=== PATIENT | male | born 1980 | race American Indian/Alaskan Native ===

== ENCOUNTER 2017-07-21 23:57 | Emergency (ER) | payer SELFPAY ==
[2017-07-22 02:25] VITALS: BP 125/79
--- NOTE | 2017-07-22 02:45 | XRay Report ---
FINAL REPORT EXAM: XR HAND 3+V RT HISTORY: right hand swollen after punching refrigerator COMPARISON: None available. FINDINGS: Three views the right hand obtained. Transverse fracture of the 5th metacarpal neck with anterior angulation of the metacarpal head. Joint spaces are preserved. Remaining bony structures are intact. IMPRESSION: Fifth metacarpal neck fracture.
[2017-07-22] MEDS ORDERED: MOTRIN PO ONE (03:03)
--- NOTE | 2017-07-22 03:08 | Emergency Department Report ---
ED Upper Extremity Inj HPI - General Chief Complaint: Extremity Injury, Upper Stated Complaint: R HAND INJURY Time Seen by Provider: 07/22/17 03:00 Source: patient Mode of arrival: Ambulatory Limitations: No Limitations - History of Present Illness Initial Comments: This is a 36-year-old male nontoxic, well nourished in appearance, no acute signs of distress presents to the ED complaining of right hand pain and swelling 4 days. Patient stated on Friday he became aggravated and punched the refrigerator then developed sharp pain in that over time has increased swelling. Patient denies any numbness, tingling, fever, chills, nausea, vomiting, chest pain or shortness of breath. Patient stated has decreased range of motion due to pain but does have a full range of motion. Patient denies any allergies or past medical history. MD Complaint: Injury to:: right, hand -: Gradual, days(s) (4) Other Extremity Injury: Hand: Right Other Injuries: none Place: home Severity scale (0 -10): 6 Improves With: none Worsens With: none Context: direct blow Associated Symptoms: denies other symptoms. denies: weakness, numbness, neck pain, suspects foreign body, nausea/vomiting, heard/felt popping sensat - Related Data Previous Rx's Medication Instructions Recorded Last Taken Type Ibuprofen [Motrin 600 MG tab] 600 mg PO Q8H PRN #30 tablet 07/22/17 Unknown Rx Allergies Allergy/AdvReac Type Severity Reaction Status Date / Time No Known Allergies Allergy Unverified 07/22/17 02:19 ED Review of Systems ROS: Stated complaint: R HAND INJURY Other details as noted in HPI Constitutional: denies: chills, fever Eyes: denies: eye pain, eye discharge, vision change ENT: denies: ear pain, throat pain Respiratory: denies: cough, shortness of breath, wheezing Cardiovascular: denies: chest pain, palpitations Endocrine: no symptoms reported Gastrointestinal: denies: abdominal pain, nausea, diarrhea Genitourinary: denies: urgency, dysuria Musculoskeletal: denies: back pain, joint swelling, arthralgia Skin: denies: rash, lesions Neurological: denies: headache, weakness, paresthesias Psychiatric: denies: anxiety, depression Hematological/Lymphatic: denies: easy bleeding, easy bruising ED Past Medical Hx - Past Medical History Previous Medical History?: No - Social History Smoking Status: Current Every Day Smoker - Medications Home Medications: Home Medications Medication Instructions Recorded Confirmed Last Taken Type Ibuprofen [Motrin 600 MG tab] 600 mg PO Q8H PRN #30 tablet 07/22/17 Unknown Rx ED Physical Exam - General Limitations: No Limitations General appearance: alert, in no apparent distress - Head Head exam: Present: atraumatic, normocephalic, normal inspection - Eye Eye exam: Present: normal appearance, PERRL, EOMI. Absent: scleral icterus, conjunctival injection, nystagmus, periorbital swelling, periorbital tenderness Pupils: Present: normal accommodation - ENT ENT exam: Present: normal exam, normal orophraynx, mucous membranes moist, TM's normal bilaterally, normal external ear exam - Neck Neck exam: Present: normal inspection, full ROM. Absent: tenderness, meningismus, lymphadenopathy, thyromegaly - Respiratory Respiratory exam: Present: normal lung sounds bilaterally. Absent: respiratory distress, wheezes, rales, rhonchi, stridor, chest wall tenderness, accessory muscle use, decreased breath sounds, prolonged expiratory - Cardiovascular Cardiovascular Exam: Present: regular rate, normal rhythm, normal heart sounds. Absent: bradycardia, tachycardia, irregular rhythm, systolic murmur, diastolic murmur, rubs, gallop - GI/Abdominal GI/Abdominal exam: Present: soft, normal bowel sounds. Absent: distended, tenderness, guarding, rebound, rigid, diminished bowel sounds - Rectal Rectal exam: Present: deferred - Extremities Exam Extremities exam: Present: normal inspection, full ROM, tenderness, normal capillary refill. Absent: pedal edema, joint swelling, calf tenderness - Expanded Upper Extremity Exam Right General: Present: normal inspection Shoulder Exam: Present: normal inspection, full ROM Upper Arm exam: Present: normal inspection, full ROM Elbow exam: Present: normal inspection, full ROM Forearm Wrist exam: Present: normal inspection, full ROM Hand Wrist exam: Present: normal inspection, full ROM, tenderness, swelling. Absent: abrasion, laceration, ecchymosis, deformity, crepidus, dislocation, erythema, amputation, nail avulsion, subungual hematoma Neuro motor exam: Present: wrist extension intact, thumb opposition intact, thumb IP flexion intact, thumb adduction intact, fingers 2-5 abduction intact Neurosensory exam: Present: 2-point discrimination, radial nerve intact, ulnar nerve intact, median nerve intact Vascular: Present: vascular compromise, normal capillary refill, radial pulse, brachial pulse, ulnar pulse - Back Exam Back exam: Present: normal inspection, full ROM. Absent: tenderness, CVA tenderness (R), CVA tenderness (L), muscle spasm, paraspinal tenderness, vertebral tenderness, rash noted - Neurological Exam Neurological exam: Present: alert, oriented X3, CN II-XII intact, normal gait, reflexes normal - Psychiatric Psychiatric exam: Present: normal affect, normal mood - Skin Skin exam: Present: warm, dry, intact, normal color. Absent: rash ED Course Vital Signs 07/22/17 02:20 Temperature 98.0 F Pulse Rate 66 Respiratory 20 Rate Blood Pressure 125/79 O2 Sat by Pulse 99 Oximetry - Reevaluation(s) Reevaluation #1: 07/22/17 03:06 Patient is speaking in full sentences with no signs of distress. Reevaluation #2: 07/22/17 04:14 Post splint examination was examined by myself; neurovascular intact. Normal range of motion of digits. Patient denies splint being too tight. Normal capillary refill less than 2 seconds. ED Medical Decision Making - Radiology Data Radiology results: report reviewed interpreted by me: Dr. Chavarria Right fifth metacarpal neck fracture - Medical Decision Making This is a 36-year-old man that presents with right metacarpal fracture. This was examined by myself. Patient is stable. X-rays did obtain an dictated radiologist. Patient received a boxer splint to the extremity. Post splint examination was examined by myself; neurovascular intact. Normal range of motion of digits. Patient denies splint being too tight. Normal capillary refill less than 2 seconds. Patient was instructed to follow-up with Dr. Hollis or another orthopedic doctor in 3-5 days or if symptoms worsen and continue presents to emergency room as soon as possible. Patient was also instructed to rest, elevate and ice extremity. Patient received ibuprofen in the ED as well as discharged. At time time of discharge, the patient does not seem toxic or ill in appearance. No acute signs of distress noted. Patient agrees to discharge treatment plan of care. No further questions noted by the patient. Critical care attestation.: If time is entered above; I have spent that time in minutes in the direct care of this critically ill patient, excluding procedure time. ED Disposition Clinical Impression: Fracture of fifth metacarpal bone Qualifiers: Encounter type: initial encounter Fracture type: closed Metacarpal location: neck Fracture alignment: nondisplaced Laterality: right Qualified Code(s): S62.366A - Nondisplaced fracture of neck of fifth metacarpal bone, right hand, initial encounter for closed fracture Disposition: TO HOME OR SELFCARE Is pt being admited?: No Does the pt Need Aspirin: No Condition: Stable Instructions: Ibuprofen (By mouth), Splint Care (ED), Boxer Fracture (ED), RICE Therapy (ED) Additional Instructions: Follow-up with Dr. Hollis [place] orthopedic doctor In 3-5 days or if symptoms worsen and continue return to emergency room as soon as possible. Rest, elevate, ice extremity. Prescriptions: Ibuprofen [Motrin 600 MG tab] 600 mg PO Q8H PRN #30 tablet PRN Reason: Pain Referrals: PRIMARY CAREMD [Primary Care Provider] - 3-5 Days ELZBIETA HOLLIS MD [Staff Physician] - 3-5 Days [facility] [Outside] - 3-5 Days [facility] [Outside] - 3-5 Days Forms: Work/School Release Form(ED)
== END 2017-07-22 04:40 | disposition home or self-care (01) ==
LOC: ED 23:57
DX: S62.366A Nondisplaced fracture of neck of fifth metacarpal bone, right hand, initial encounter for closed fracture (principal); F17.200 Nicotine dependence, unspecified, uncomplicated; X58.XXXA Exposure to other specified factors, initial encounter; Y93.9 Activity, unspecified; Y99.9 Unspecified external cause status; Y92.89 Other specified places as the place of occurrence of the external cause

== ENCOUNTER 2019-08-15 02:27 | Emergency (ER) | payer SELFPAY ==
[2019-08-15] MEDS ORDERED: BOOSTRIX IM ONE (02:48)
[2019-08-15] MEDS ORDERED: XYLOCAINE 1% 20 mL INFILTRATI ONE (02:48)
--- NOTE | 2019-08-15 02:48 | Event Note ---
Face to Face: For this encounter I have reviewed the PA/[employer] documentation, treatment plan, medical decision making, and I had face to face time with this patient. I evaluated Mr. Hollis. Long deep laceration at the thenar eminence. hand/digit neurovascularly intact.
--- NOTE | 2019-08-15 02:48 | Emergency Department Report ---
- General Chief Complaint: Wound/Laceration Stated Complaint: R HAND PUNCTURE WOUND Time Seen by Provider: 08/15/19 02:41 Source: patient Mode of arrival: Ambulatory Limitations: No Limitations - History of Present Illness Initial Comments: Patient is a 38-year-old male presents to emergency room with complaints of a laceration to the right hand that occurred 1 hour prior to arrival. he states that he was at work and was changing out the trash when he was cut by a broken wine bottle. he denies any numbness or weakness. he is unsure when his last tetanus immunization was. he is fully able to move the hand and fingers without difficulty. pt is left hand dominant. - Related Data Previous Rx's Medication Instructions Recorded Last Taken Type Ibuprofen [Motrin 600 MG tab] 600 mg PO Q8H PRN #30 tablet 07/22/17 Unknown Rx cephALEXin [Keflex] 500 mg PO QID 7 Days #56 capsule 08/15/19 Unknown Rx Allergies Allergy/AdvReac Type Severity Reaction Status Date / Time No Known Allergies Allergy Unverified 07/22/17 02:19 ED Review of Systems ROS: Stated complaint: R HAND PUNCTURE WOUND Other details as noted in HPI Comment: All other systems reviewed and negative ED Past Medical Hx - Past Medical History Previous Medical History?: No - Surgical History Past Surgical History?: No - Social History Smoking Status: Current Every Day Smoker - Medications Home Medications: Home Medications Medication Instructions Recorded Confirmed Last Taken Type Ibuprofen [Motrin 600 MG tab] 600 mg PO Q8H PRN #30 tablet 07/22/17 Unknown Rx cephALEXin [Keflex] 500 mg PO QID 7 Days #56 capsule 08/15/19 Unknown Rx ED Physical Exam - General Limitations: No Limitations General appearance: alert, in no apparent distress - Head Head exam: Present: atraumatic, normocephalic - Eye Eye exam: Present: normal appearance - ENT ENT exam: Present: mucous membranes moist - Extremities Exam Extremities exam: Present: other (5 cm laceration to the palmar surface over the thenar emminence, muscle is exposed, does not transect the muscle or tendon, two small arterial bleeding present, pt has FROM Of the right hand and thumb, able to do flexion, extension, abduction, adduction, and thumb opposition of the right thumb without difficulty, neurovascularly intact) - Neurological Exam Neurological exam: Present: alert, oriented X3 - Psychiatric Psychiatric exam: Present: normal affect, normal mood - Skin Skin exam: Present: warm, dry ED Course Vital Signs 08/15/19 08/15/19 08/15/19 02:30 02:33 04:46 Temperature 98.1 F 97.2 F L Pulse Rate 84 84 78 Respiratory 18 18 16 Rate Blood Pressure 136/75 136/75 Blood Pressure 139/78 [Right] O2 Sat by Pulse 99 99 99 Oximetry - Laceration /Wound Repair Right Palm Hand Wound Location: upper extremity (right palmar aspect thenar emminence) Wound Length (cm): 5 Wound's Depth, Shape: superficial Wound Explored: clean Irrigated w/ Saline (ccs): 500 Betadine Prep?: Yes Anesthesia: 1% Lidocaine Volume Anesthetic (ccs): 8 Wound Debrided: moderate Wound Repaired With: Steri-strips Suture Size/Type: 4:0, proline Number of Sutures: 1 (running interlocking stitch) Layer Closure?: Yes Deep Layer Suture Size/Type: 4:0 (vicryl) Number Deep Layer Sutures: 6 Sterile Dressing Applied?: Yes Progress: Wound thoroughly irrigated with saline and explored, muscle is exposed but not transected, no tendon involvement, no foreign body, thoroughly scrubbed with Betadine, 8 mL of 1% lidocaine without epinephrine used as anesthetic, Betadine prep again, sterile gloves worn, sterile dressing applied, 2 small arterial bleeds, 6 horizontal mattress stitches placed with 4-0 Vicryl, bleeding resolved, one running interlocking stitch for skin closure with 4-0 Prolene, pt tolerated well, bleeding stopped, no complications, sterile dressing applied, patient has brisk cap refill after procedure ED Medical Decision Making - Medical Decision Making Patient is a 38-year-old male presents to emergency room with complaints of a laceration to the right hand that occurred 1 hour prior to arrival. he states that he was at work and was changing out the trash when he was cut by a broken wine bottle. he denies any numbness or weakness. he is unsure when his last tetanus immunization was. he is fully able to move the hand and fingers without difficulty. pt is left hand dominant. vitals are normal. on exam: 5 cm laceration to the palmar surface over the thenar emminence, muscle is exposed, does not transect the muscle or tendon, two small arterial bleeding present, pt has FROM Of the right hand and thumb, able to do flexion, extension, abduction, adduction, and thumb opposition of the right thumb without difficulty, neurovascularly intact. Wound irrigated with saline and thoroughly cleaned with Betadine. Arterial bleeding and laceration repaired per procedure note. Patient tolerated well and bleeding resolved. pt had very brisk cap refill aft er procedure completion. pt given tetanus immunization. pt given prescription for Keflex for prophylaxis. advised pt to Please take medication as prescribed. please keep area clean, dry, covered. May wash with soap and water and immediately dry. No hot tub, pool, soaking in water. please follow-up with Dr. Tobar, hand surgeon in the next 3 days. Return to the emergency room immediately for any new or worsening symptoms including but not limited to worsening swelling, redness, increased warmth, fever, pus drainage, etc. Critical Care Time: Yes Critical care time in (mins) excluding proc time.: 35 Critical care attestation.: If time is entered above; I have spent that time in minutes in the direct care of this critically ill patient, excluding procedure time. repairing arterial bleeding ED Disposition Clinical Impression: Arterial hemorrhage Laceration of right hand Qualifiers: Encounter type: initial encounter Foreign body presence: without foreign body Qualified Code(s): S61.411A - Laceration without foreign body of right hand, initial encounter Disposition: TO HOME OR SELFCARE Is pt being admited?: No Does the pt Need Aspirin: No Condition: Stable Instructions: Suture Care (ED), Laceration (ED), Absorbable Suture Care (ED) Additional Instructions: Please take medication as prescribed. please keep area clean, dry, covered. May wash with soap and water and immediately dry. No hot tub, pool, soaking in water. please follow-up with Dr. Tobar, hand surgeon in the next 3 days. Return to the emergency room immediately for any new or worsening symptoms including but not limited to worsening swelling, redness, increased warmth, fever, pus drainage, etc. Prescriptions: cephALEXin [Keflex] 500 mg PO QID 7 Days #56 capsule Referrals: HELEN TOBAR MD [Referring] - 2-3 Days Time of Disposition: 04:19 Print Language: BELARUSIAN
[2019-08-15] MEDS ORDERED: NACL 0.9% IR ONE (02:52)
[2019-08-15] MEDS ORDERED: NACL 0.9% 500 ML IR ONE (02:55)
[2019-08-15 04:49] VITALS: BP 139/78
== END 2019-08-15 04:46 | disposition home or self-care (01) ==
LOC: ED 02:27
DX: S61.411A Laceration without foreign body of right hand, initial encounter (principal); F17.200 Nicotine dependence, unspecified, uncomplicated; Z79.899 Other long term (current) drug therapy; W26.8XXA Contact with other sharp object(s), not elsewhere classified, initial encounter; Y93.89 Activity, other specified; Y92.89 Other specified places as the place of occurrence of the external cause; Y99.8 Other external cause status
CPT/HCPCS: 90471; 90715